=== PATIENT | male | born 1960 | race Caucasian/White ===

== ENCOUNTER 2017-06-18 10:03 | Day surgery (SDC) | payer OTHER ==
[~2017-06-18] VITALS: Ht 175.3 cm; Wt 121.2 kg
[2017-06-18 10:48] VITALS: Ht 175.3 cm; Wt 121.2 kg
[2017-06-18] MEDS ORDERED: VIT D (10:55)
[2017-06-18 11:03] VITALS: BP 117/73; PULSE 70; RESP 22
[2017-06-18] MEDS ORDERED: LIDOCAINE 2% (SDV) 5 ML INJ ONE (11:48)
[2017-06-18] MEDS ORDERED: PROPOFOL 40 ML ONE (11:48)
--- NOTE | 2017-06-18 11:58 | OPPN ---
Date/Time of Note Date/Time of Note DATE: 06/18/17 TIME: 11:57 Proc Note GI Procedure Date 06/18/17 Indication: screening/surveillance Pre-procedure Diagnosis colon npolyps Post-procedure Diagnosis hemorrhoids Procedure Performed: Colonoscopy Surgeon see signature line Receptionist Scheduler none Anesthesia Type: MAC Anesthesiologist: GILBERT GOLDEN DO Tourniquet Time none EBL none Transfusion required none Biopsy 1: none Grafts/Implants none Tubes/Drains none Complication(s) none Disposition: home Procedure Description colonoscopy hemorrhoids LOREN PHELPS MD Jun 18, 2017 11:58
[2017-06-18 12:30] VITALS: BP 128/78; PULSE 67; RESP 16
--- NOTE | 2017-06-19 03:07 | GILP ---
DATE OF PROCEDURE: PROCEDURE: Colonoscopy. PREOPERATIVE DIAGNOSIS: Screening colonoscopy to rule out colon polyps. POSTOPERATIVE DIAGNOSIS: Minimal external hemorrhoids. The rest of the colon appeared normal. DESCRIPTION OF PROCEDURE: After informed written consent was obtained, the patient was asked to lie on the left lateral side. Intravenous anesthesia was given by anesthesiologist, Dr. Chaidez. Whe n the patient became somnolent, the Olympus video colonoscope was introduced into the rectum and sco pe was advanced all the way to the cecum. The entire colon appeared normal, no polyps, no carcinoma or any other abnormality detected. Endoscope at this time was withdrawn and on the way out, the mi nimal external hemorrhoids were noted and the procedure was terminated. PLAN: Recommend repeat the colonoscopy in 10 years. Dictated By: LOREN FREDERICK/PAULA Conf#: [id number] DID#: [id number]
== END 2017-06-18 13:05 | disposition home or self-care (01) ==
LOC: GIL 10:03
PROVIDERS: ATTEND Internal Medicine Gastroenterology
DX: Z12.11 Encounter for screening for malignant neoplasm of colon (principal); K64.8 Other hemorrhoids
CPT/HCPCS: 45378; Z7610

== ENCOUNTER 2019-03-13 14:45 | Day surgery (SDC) | payer OTHER ==
[2019-03-12 16:14] VITALS: Ht 175.3 cm; Wt 122.5 kg
[~2019-03-13] VITALS: Ht 175.3 cm; Wt 122.5 kg
[2019-03-13] VITALS (8 sets, daily range): BP systolic 101–125; BP diastolic 61–77; PULSE 64–72; RESP 13–20
[~2019-03-13 14:45] MED LIST: CEFAZOLIN 2 GM/50 ML (PMX) 50 ML IVPB ONE; LACTATED RINGER'S 1,000 ML IV SCH; VIT D
[2019-03-13] MEDS ORDERED: BUPIVACAINE 0.5% (SDV) 30 ML INJ ONE (15:32)
[2019-03-13] MEDS ORDERED: LIDOCAINE 1% (MPF) 30 ML INJ ONE (16:34)
--- NOTE | 2019-03-13 16:34 | HPN ---
Date/Time of Note Date/Time of Note DATE: 03/13/19 TIME: 16:34 Interval H&P Admission Note Pt. seen H&P reviewed: No system changes UYEN MCMULLEN Mar 13, 2019 16:34
--- NOTE | 2019-03-13 16:37 | PREAC ---
Date/Time of Note Date/Time of Note DATE: 03/13/19 TIME: 16:36 Anesthesia Eval and Record Evaluation Time Pre-Procedure Interview DATE: 03/13/19 TIME: 16:36 Age 58 Sex male NPO: 8 hrs Preoperative diagnosis Right carpal Tunnel Syndrome Planned procedure Right Carpal Tunnel Release Past Medical History Past Medical History: Includes Cardio: CHF Pulm: Sleep Apnea, Home CPAP GI: Morbid obesity Surgery & Anesthesia Issues No known issue Meds Anticoagulation: No Beta Meily within 24 hr: No Reason Beta Emily not given: Pt. not on B-Emily Reported Medications [Vit D] No Conflict Check 06/18/17 Current Medications Lactated Ringer's 1,000 ml @ 20 mls/hr Q24H IV ; Start 03/13/19 at 06:00 Meds reviewed: Yes Allergies Coded Allergies: No Known Allergy (Unverified , 03/12/19) Allergies Reviewed: Yes Labs/Studies Labs Reviewed: Reviewed by anesthesiologist test: N/A Studies: ECG (n/a), CXR (n/a) Pre-procedure Exam Last vitals Vital Signs Date Temp Pulse Resp B/P (MAP) Pulse Ox O2 O2 Flow FiO2 Time Delivery Rate 03/13/19 97.7 72 20 125/73 96 Room Air 15:29 (90) Airway: Adequate mouth opening, Adequate thyromental dist Mallampati: Mallampati III Teeth: Normal Lung: Normal Heart: Normal ASA Physical Status ASA physical status: 3 Emergency: None Planned Anesthetic General/MAC: MAC Planned Pain Management Parenteral pain med Pre-operative Attestations Prior to commencing anesthesia and surgery, the patient was re-evaluated, there was verification of: *The patient's identity *The results of appropriate recent lab work and preoperative vital signs *The above evaluation not changing prior to induction *Anesthetic plan, risk benefits, alternative and complications discussed with patient/family; questions answered; patient/family understands, accepts and wishes to proceed. CLAUDIA ARNOLD MD Mar 13, 2019 16:37
[2019-03-13] MEDS ORDERED: FENTAnyl 50 MCG/ML VIAL ONE (16:46)
[2019-03-13] MEDS ORDERED: MIDAZOLAM 1 MG/ML 2 ML INJ ONE (16:46)
[2019-03-13] MEDS ORDERED: PROPOFOL 200 MG INJ ONE (16:46)
[2019-03-13] MEDS ORDERED: CEFAZOLIN 1 GM INJ ONE (16:46)
[2019-03-13] MEDS ORDERED: LABETALOL HCL 20MG INJ IV PRN (17:00)
[2019-03-13] MEDS ORDERED: METOCLOPRAMIDE 10 MG INJ IV PRN (17:00)
[2019-03-13] MEDS ORDERED: FENTAnyl 50 MCG/ML VIAL IV PRN ×2 (17:00)
[2019-03-13] MEDS ORDERED: EPHEDrine 25 MG/5 ML SYG IV PRN (17:00)
[2019-03-13] MEDS ORDERED: OXYCODONE/ACETAMINOPHEN (5/325) TAB PO PRN (17:00)
[2019-03-13] MEDS ORDERED: ONDANSETRON 4 MG INJ IV PRN (17:00)
[2019-03-13] MEDS ORDERED: HYDROmorphONE 1 MG/5 ML IV SYRINGE IV PRN ×2 (17:00)
[2019-03-13] MEDS ORDERED: LIDOCAINE 1% (MPF) 30 ML INJ INJ ONE (17:01)
--- NOTE | 2019-03-13 17:18 | OPPN ---
Date/Time of Note Date/Time of Note DATE: 03/13/19 TIME: 17:17 Operative Report Preoperative Diagnosis right carpal tunnel syndrome Postoperative Diagnosis right carpal tunnel syndrome Operation/Procedure Performed right carpal tunnel release Surgeon see signature line paraprofessional education assistant none Anesthesia: general, MAC Estimated blood loss: 0 - 10 ml's Transfusion Required none Specimen none Grafts/Implants none Complications none UYEN MCMULLEN Mar 13, 2019 17:17
--- NOTE | 2019-03-13 17:22 | PAC ---
Date/Time of Note Date/Time of Note DATE: 03/13/19 TIME: 17:21 Post-Anesthesia Notes Post-Anesthesia Note Last documented vital signs Vital Signs Date Temp Pulse Resp B/P (MAP) Pulse Ox O2 O2 Flow FiO2 Time Delivery Rate 03/13/19 97.7 72 20 125/73 96 Room Air 17:20 (90) Activity: WNL Respiratory function: WNL Cardiovascular function: WNL Mental status: Baseline Pain reasonably controlled: Yes Hydration appropriate: Yes Nausea/Vomiting absent: Yes CLAUDIA ARNOLD MD Mar 13, 2019 17:22
--- NOTE | 2019-03-13 18:39 | OPR ---
DATE OF OPERATION: 03/13/2019 SURGEON: Kristian Urena MD PREOPERATIVE DIAGNOSIS: Right carpal tunnel syndrome. POSTOPERATIVE DIAGNOSIS: Right carpal tunnel syndrome. PROCEDURE: Right carpal tunnel release, open. OPERATIVE FINDINGS: Compression of the median nerve at the carpal tunnel. INDICATION FOR PROCEDURE: This is a 58-year-old male with longstanding right carpal tunnel syndrome who failed conservative management and elected to proceed with surgical intervention, understanding the risks and benefits. DESCRIPTION OF PROCEDURE: The patient was seen in the preoperative area and all further questions were answered. Again, he gave informed consent, understanding risks and benefits. He was taken to OR suite, placed in supine position. Ancef 2 grams were IV given and tourniquet was placed in the right upper extremity. Right upper extremity was prepped with ChloraPrep stick and draped in a sterile fashion. Esmarch bandage was used to exsanguinate extremity and tourniquet was inflated to 250 mmHg. A 2 cm incision at the base of the palm was utilized with sharp dissection was carried down through skin and subcutaneous tissue. The palmar aponeurosis was incised along its ulnar border and retractors were deepened to the transverse carpal ligament were divided along its ulnar border approximately 3 mm radial to the hook of the hamate. Retraction was placed proximally and distally and the proximal and distal extensor transverse carpal ligament were divided under direct visualization. Wound was copiously irrigated. Skin was closed with 5-0 nylon. Xeroform was placed over the wound followed by sterile gauze, Webril and bias bandage. Tourniquet was deflated after 11 minutes. The patient was awakened from anesthesia. He was taken to the postoperative suite in stable condition. He tolerated procedure well without complication. SPECIMENS: None. ESTIMATED BLOOD LOSS: 5 mL. COUNTS: Sponge, instrument and needle counts were correct. TOURNIQUET TIME: 11 minutes. CONDITION ON DISCHARGE: Stable. The patient was given a nonrefillable 5-day prescription for pain medication for surgery today. Dictated By: KRISTIAN SCHAEFER/PAULA Conf#: [id number] DID#: [id number]
== END 2019-03-13 18:38 | disposition home or self-care (01) ==
LOC: SDS 14:45
PROVIDERS: ATTEND Orthopaedic Surgery Hand Surgery
DX: G56.01 Carpal tunnel syndrome, right upper limb (principal); G47.33 Obstructive sleep apnea (adult) (pediatric); E66.09 Other obesity due to excess calories
CPT/HCPCS: 64721; J2250; J3010; Z7512; Z7610; J0690